=== PATIENT | male | born 1960 | race Caucasian/White ===

== ENCOUNTER 2019-06-06 13:57 | Emergency (ER) | payer OTHER ==
--- NOTE | 2019-06-06 17:51 | EDM.PDOC ---
ED HPI GENERAL MEDICAL PROBLEM - General Chief Complaint: Chest Pain Stated Complaint: PAIN IN SHOULDER AND ARM Time Seen by Provider: 06/06/19 17:24 Source of Information: Reports: Patient History Limitations: Reports: No Limitations - History of Present Illness INITIAL COMMENTS - FREE TEXT/NARRATIVE: Patient is a 59-year-old male who presents with complaints of intermittent left upper arm and shoulder pain/tightness, as well as occasional upper back pain. There is been no known injury to the areas and no recent overuse of the extremity. He denies any chest pain, shortness of breath, diaphoresis, or dizziness associated with the pain. Describes the pain as a dull ache over the anterior and posterior bicep of the left arm. States that yesterday he had some upper back pain as well. The pain is not constant but rather comes and goes. Pain was not present at the time of the exam. Patient has no personal cardiac history. Past medical history is significant for high cholesterol, hypertension, and sleep apnea. He has no history of blood clots. Denies any swelling or warmth to the left upper extremity. Upper Back Pain Score (Numeric/FACES): 4 Left Arm Pain Score (Numeric/FACES): 2 - Related Data Allergies Allergy/AdvReac Type Severity Reaction Status Date / Time EES AdvReac Vomiting Uncoded 06/06/19 14:12 Home Meds: Home Meds Cholecalciferol (Vitamin D3) [Vitamin D3] 1,000 unit PO DAILY 06/06/19 [History] FLUoxetine [PROzac] 20 mg PO DAILY 06/06/19 [History] Levothyroxine 75 mcg PO DAILY 06/06/19 [History] Losartan [Cozaar] 25 mg PO DAILY 06/06/19 [History] atorvaSTATin [Lipitor] 80 mg PO BEDTIME 06/06/19 [History] metFORMIN [Glucophage] 1,000 mg PO BID 06/06/19 [History] Past Medical History Cardiovascular History: Reports: High Cholesterol, Hypertension Respiratory History: Reports: Sleep Apnea Other Respiratory History: wears c-pap Psychiatric History: Reports: Depression - Past Surgical History HEENT Surgical History: Reports: Adenoidectomy, Tonsillectomy GI Surgical History: Reports: Cholecystectomy Musculoskeletal Surgical History: Reports: Hip Replacement, Shoulder Surgery Social & Family History - Tobacco Use Smoking Status *Q: Never Smoker - Caffeine Use Caffeine Use: Reports: Coffee, Energy Drinks - Recreational Drug Use Recreational Drug Use: No ED ROS GENERAL - Review of Systems Review Of Systems: See Below Constitutional: Reports: No Symptoms. Denies: Fever, Chills, Weakness, Diaphoresis HEENT: Reports: No Symptoms Respiratory: Reports: No Symptoms. Denies: Shortness of Breath Cardiovascular: Reports: No Symptoms. Denies: Chest Pain Endocrine: Reports: No Symptoms GI/Abdominal: Reports: No Symptoms. Denies: Abdominal Pain, Nausea, Vomiting : Reports: No Symptoms Musculoskeletal: Reports: Shoulder Pain, Arm Pain, Back Pain Skin: Reports: No Symptoms Neurological: Reports: No Symptoms. Denies: Dizziness, Numbness, Paresthesia, Tingling Psychiatric: Reports: No Symptoms Hematologic/Lymphatic: Reports: No Symptoms Immunologic: Reports: No Symptoms ED EXAM, GENERAL - Physical Exam Exam: See Below Exam Limited By: No Limitations General Appearance: Alert, WD/WN, No Apparent Distress Head: Atraumatic, Normocephalic Neck: Normal Inspection, Supple, Non-Tender, Full Range of Motion Respiratory/Chest: No Respiratory Distress, Lungs Clear, Normal Breath Sounds, No Accessory Muscle Use, Chest Non-Tender Cardiovascular: Normal Peripheral Pulses, Regular Rate, Rhythm, No Edema, No Gallop, No JVD, No Murmur, No Rub Back Exam: Normal Inspection, Full Range of Motion, NT Extremities: Normal Inspection, Normal Range of Motion, Non-Tender, Normal Capillary Refill, No Pedal Edema Neurological: Alert, Oriented, CN II-XII Intact, Normal Cognition, Normal Gait, Normal Reflexes, No Motor/Sensory Deficits Psychiatric: Normal Affect, Normal Mood Skin Exam: Warm, Dry, Intact, Normal Color, No Rash EKG INTERPRETATION EKG Date: 06/06/19 Time: 16:53 Rhythm: NSR Rate (Beats/Min): 62 [place]: Normal P-Wave: Present QRS: Normal ST-T: Normal QT: Normal EKG Interpretation Comments: EKG interpreted by Dr. Padgett. Course - Vital Signs Last Recorded V/S: Last Vital Signs Temp 96.8 F L 06/06/19 14:17 Pulse 65 06/06/19 14:17 Resp 20 06/06/19 14:17 BP 168/103 H 06/06/19 14:17 Pulse Ox 95 06/06/19 14:17 - Orders/Labs/Meds Orders: Active Orders 24 hr Category Date Time Status EKG Documentation Completion [RC] ASDIRECTED Care 06/06/19 16:29 Active EKG Documentation Completion [RC] STAT Care 06/06/19 17:36 Active Chest 1V Frontal [CR] Stat Exams 06/06/19 16:23 Taken EKG 12 Lead [EK] Stat Ther 06/06/19 16:29 Ordered Labs: Laboratory Tests 06/06/19 06/06/19 06/06/19 Range/Units 14:18 14:18 14:18 WBC 6.95 (4.23-9.07) K/mm3 RBC 4.80 (4.63-6.08) M/mm3 Hgb 15.3 (13.7-17.5) gm/dl Hct 43.5 (40.1-51.0) % MCV 90.6 (79.0-92.2) fl MCH 31.9 (25.7-32.2) pg MCHC 35.2 (32.2-35.5) g/dl RDW Std Deviation 44.7 H (35.1-43.9) fL Plt Count 176 (163-337) K/mm3 MPV 11.5 (9.4-12.3) fl Neut % (Auto) 58.6 (34.0-67.9) % Lymph % (Auto) 31.1 (21.8-53.1) % [place] % (Auto) 9.4 (5.3-12.2) % Eos % (Auto) 0.7 L (0.8-7.0) Baso % (Auto) 0.1 (0.1-1.2) % Neut # (Auto) 4.07 (1.78-5.38) K/mm3 Lymph # (Auto) 2.16 (1.32-3.57) K/mm3 [place] # (Auto) 0.65 (0.30-0.82) K/mm3 Eos # (Auto) 0.05 (0.04-0.54) K/mm3 Baso # (Auto) 0.01 (0.01-0.08) K/mm3 PT 10.6 (9.7-12.0) SECONDS INR 0.97 D-Dimer, Quantitative (0.19-0.50) mg/L Sodium 140 (136-145) mEq/L Potassium 4.2 (3.5-5.1) mEq/L Chloride 103 (98-107) mEq/L Carbon Dioxide 27 (21-32) mEq/L Anion Gap 14.2 (5-15) BUN 19 H (7-18) mg/dL Creatinine 1.4 H (0.7-1.3) mg/dL Est Cr Clr Drug Dosing 63.13 mL/min Estimated GFR (MDRD) 52 (>60) mL/min BUN/Creatinine Ratio 13.6 L (14-18) Glucose 173 H (74-106) mg/dL Calcium 9.2 (8.5-10.1) mg/dL Total Bilirubin 0.7 (0.2-1.0) mg/dL AST 21 (15-37) U/L ALT 44 (16-63) U/L Alkaline Phosphatase 97 (46-116) U/L Troponin I < 0.017 (0.00-0.056) ng/mL Total Protein 7.8 (6.4-8.2) g/dl Albumin 4.0 (3.4-5.0) g/dl Globulin 3.8 gm/dL Albumin/Globulin Ratio 1.1 (1-2) 06/06/19 06/06/19 Range/Units 14:18 17:53 WBC (4.23-9.07) K/mm3 RBC (4.63-6.08) M/mm3 Hgb (13.7-17.5) gm/dl Hct (40.1-51.0) % MCV (79.0-92.2) fl MCH (25.7-32.2) pg MCHC (32.2-35.5) g/dl RDW Std Deviation (35.1-43.9) fL Plt Count (163-337) K/mm3 MPV (9.4-12.3) fl Neut % (Auto) (34.0-67.9) % Lymph % (Auto) (21.8-53.1) % [place] % (Auto) (5.3-12.2) % Eos % (Auto) (0.8-7.0) Baso % (Auto) (0.1-1.2) % Neut # (Auto) (1.78-5.38) K/mm3 Lymph # (Auto) (1.32-3.57) K/mm3 [place] # (Auto) (0.30-0.82) K/mm3 Eos # (Auto) (0.04-0.54) K/mm3 Baso # (Auto) (0.01-0.08) K/mm3 PT (9.7-12.0) SECONDS INR D-Dimer, Quantitative 0.27 (0.19-0.50) mg/L Sodium (136-145) mEq/L Potassium (3.5-5.1) mEq/L Chloride (98-107) mEq/L Carbon Dioxide (21-32) mEq/L Anion Gap (5-15) BUN (7-18) mg/dL Creatinine (0.7-1.3) mg/dL Est Cr Clr Drug Dosing mL/min Estimated GFR (MDRD) (>60) mL/min BUN/Creatinine Ratio (14-18) Glucose (74-106) mg/dL Calcium (8.5-10.1) mg/dL Total Bilirubin (0.2-1.0) mg/dL AST (15-37) U/L ALT (16-63) U/L Alkaline Phosphatase (46-116) U/L Troponin I < 0.017 (0.00-0.056) ng/mL Total Protein (6.4-8.2) g/dl Albumin (3.4-5.0) g/dl Globulin gm/dL Albumin/Globulin Ratio (1-2) - Re-Assessments/Exams Free Text/Narrative Re-Assessment/Exam: 06/06/19 18:13 Patient's hematology was grossly unremarkable with the exception of a BUN elevated at 19 and a creatinine elevated at 1.4. D-dimer was negative at 0.27 and initial troponin was negative at less than 0.017. Ordered a repeat troponin be completed approximately 3 hours from the original. If this comes back normal, I will will discuss treatment of musculoskeletal pain with the patient. 06/06/19 18:34 Repeat troponin was also negative. We will discharge the patient home. Discharge instructions as documented. Departure - Departure Time of Disposition: 18:34 Disposition: Home, Self-Care 01 Condition: Fair Clinical Impression: Arm pain, left Instructions: Musculoskeletal Pain Referrals: Macie Raymundo MD [Primary Care Provider] - Linda Powell NP [Ordering Only Provider] - Forms: ED Department Discharge Additional Instructions: You were seen in the emergency department today for left arm pain, as well as upper back pain for the last 2 days. Your work-up included blood work, an EKG of your heart, and a chest x-ray. These were negative for any abnormalities. At this time there are no signs of a heart attack. It is likely that your pain is musculoskeletal in nature. Recommend using [id number] Tylenol or ibuprofen as needed for any discomfort. If you should experience any worsening symptoms such as increased pain, shortness of breath, dizziness, or any other symptoms of concern, please do not hesitate to return to the emergency department. Sepsis Event Note - Evaluation Sepsis Screening Result: No Definite Risk - Focused Exam Vital Signs: Vital Signs Temp Pulse Resp BP Pulse Ox 06/06/19 14:17 96.8 F L 65 20 168/103 H 95 Date Exam was Performed: 06/06/19 Time Exam was Performed: 21:20 - My Orders Last 24 Hours: My Active Orders 06/06/19 16:23 Chest 1V Frontal [CR] Stat 06/06/19 16:29 EKG Documentation Completion [RC] ASDIRECTED EKG 12 Lead [EK] Stat 06/06/19 17:36 EKG Documentation Completion [RC] STAT - Assessment/Plan Last 24 Hours: My Active Orders 06/06/19 16:23 Chest 1V Frontal [CR] Stat 06/06/19 16:29 EKG Documentation Completion [RC] ASDIRECTED EKG 12 Lead [EK] Stat 06/06/19 17:36 EKG Documentation Completion [RC] STAT
--- NOTE | 2019-06-07 08:00 | CR ---
Chest: Portable view of the chest was obtained. Comparison: No prior chest imaging. Heart size and mediastinum are normal. Lungs are clear with no acute parenchymal change. Bony structures are grossly intact. Impression: 1. Nothing acute is appreciated on portable chest x-ray. Diagnostic code #1 This report was dictated in [place] Standard Time
== END 2019-06-06 18:49 | disposition home or self-care (01) ==
LOC: JD.ED 13:57
DX: M79.622 Pain in left upper arm (principal); M54.6 Pain in thoracic spine; Z91.09 Other allergy status, other than to drugs and biological substances; I10 Essential (primary) hypertension; F32.9 Major depressive disorder, single episode, unspecified; Z79.899 Other long term (current) drug therapy; Z98.890 Other specified postprocedural states; Z90.49 Acquired absence of other specified parts of digestive tract; Z79.84 Long term (current) use of oral hypoglycemic drugs
CPT/HCPCS: 36415; 71045; 71045-26; 80053; 84484; 85025; 85379; 85610; 93005; 93010; 99283; 99284-25

== ENCOUNTER 2020-04-29 09:36 | Emergency (ER) | payer OTHER ==
--- NOTE | 2020-04-29 09:58 | EDM.PDOC ---
ED HPI GENERAL MEDICAL PROBLEM - General Chief Complaint: Cardiovascular Problem Stated Complaint: HIGH BP/NUMBNESS IN RT ARM AND HAND Time Seen by Provider: 04/29/20 09:57 - History of Present Illness INITIAL COMMENTS - FREE TEXT/NARRATIVE: 60-year-old male presents the emergency room with elevated hypertension. Patient has noted his blood pressures been elevated for the last several days. Sometimes the systolic is higher than 190. He called the MD clinic and they recommended he come in for evaluation. Patient is treated with losartan for his hypertension. Patient also has type 2 diabetes. Patient is also noticed that his vision has been getting a little blurry however he is due for having his eyes checked, and he is not aware of a correlation with this being related to his blood pressure going up. Patient has some intermittent tingling sensation in his right hand mostly his pinky finger. He has not had any headaches no nausea no vomiting and no symptoms to make him feel as though he is coming down with something. Patient has not had any medication changes recently. He has noticed however his blood sugars have been running slightly higher than normal less than 200. However he normally runs in the 100-130 range. Medications have been reviewed he is on 3 medications for his blood pressure Toprol-XL 100 mg daily hydrochlorothiazide 50 mg daily and losartan 25 mg daily. Right Hand Pain Score (Numeric/FACES): 2 - Related Data Allergies Allergy/AdvReac Type Severity Reaction Status Date / Time EES AdvReac Severe Vomiting Uncoded 04/29/20 09:50 Home Meds: Home Meds Cholecalciferol (Vitamin D3) [Vitamin D3] 1,000 unit PO DAILY 06/06/19 [History] FLUoxetine [PROzac] 20 mg PO DAILY 06/06/19 [History] Levothyroxine 75 mcg PO DAILY 06/06/19 [History] Losartan [Cozaar] 25 mg PO DAILY 06/06/19 [History] atorvaSTATin [Lipitor] 80 mg PO BEDTIME 06/06/19 [History] metFORMIN [Glucophage] 1,000 mg PO BID 06/06/19 [History] Alogliptin Benzoate [Alogliptin] 12.5 mg PO DAILY 04/29/20 [History] Ezetimibe 10 mg PO BEDTIME 04/29/20 [History] Metoprolol Succinate [Toprol Xl] 100 mg PO DAILY 04/29/20 [History] Sildenafil [Viagra] 100 mg PO DAILY PRN 04/29/20 [History] hydroCHLOROthiazide [Hydrochlorothiazide] 50 mg PO DAILY 04/29/20 [History] Past Medical History Cardiovascular History: Reports: High Cholesterol, Hypertension Respiratory History: Reports: Sleep Apnea Other Respiratory History: wears c-pap Psychiatric History: Reports: Depression - Past Surgical History HEENT Surgical History: Reports: Adenoidectomy, Tonsillectomy GI Surgical History: Reports: Cholecystectomy Musculoskeletal Surgical History: Reports: Hip Replacement, Shoulder Surgery Social & Family History - Caffeine Use Caffeine Use: Reports: Coffee, Energy Drinks ED ROS GENERAL - Review of Systems Review Of Systems: See Below Constitutional: Reports: No Symptoms HEENT: Reports: No Symptoms Respiratory: Reports: No Symptoms Cardiovascular: Reports: Blood Pressure Problem Endocrine: Reports: Other (Patient states that his blood sugars have been running a little higher than normal.) ED EXAM, GENERAL - Physical Exam Exam: See Below Exam Limited By: No Limitations General Appearance: Alert, Moderate Distress Eye Exam: Bilateral Eye: EOMI, Normal Inspection, PERRL Ears: Normal External Exam, Normal Canal, Hearing Grossly Normal, Normal TMs Nose: Normal Inspection, Normal Mucosa, No Blood Throat/Mouth: Normal Inspection, Normal Lips, Normal Teeth, Normal Gums, Normal Oropharynx, Normal Voice, No Airway Compromise Head: Atraumatic, Normocephalic Neck: Normal Inspection, Supple, Non-Tender, Full Range of Motion. No: Lymphadenopathy (L), Lymphadenopathy (R) Respiratory/Chest: No Respiratory Distress, Lungs Clear, Normal Breath Sounds Cardiovascular: Regular Rate, Rhythm, No Edema, No Murmur GI/Abdominal: Normal Bowel Sounds, Soft, Non-Tender Back Exam: Normal Inspection. No: CVA Tenderness (L), CVA Tenderness (R) Extremities: Normal Inspection, No Pedal Edema, Other (Tinel's, Phalen's, reverse Phalen's are all normal in his right hand and wrist) Neurological: Alert #1 Interpretation EKG Date: 04/29/20 Rhythm: NSR [place]: Normal P-Wave: Present QRS: Other (Low voltage precordial leads) ST-T: Normal QT: Normal Comparison: NA - No Prior EKG EKG Interpretation Comments: Borderline nonacute EKG Course - Vital Signs Last Recorded V/S: Last Vital Signs Temp 35.3 C L 04/29/20 09:45 Pulse 54 L 04/29/20 09:45 Resp 20 04/29/20 09:45 BP 180/97 H 04/29/20 09:45 Pulse Ox 98 04/29/20 09:45 - Orders/Labs/Meds Orders: Active Orders 24 hr Category Date Time Status EKG Documentation Completion [RC] ASDIRECTED Care 04/29/20 09:42 Active EKG 12 Lead [EK] Stat Ther 04/29/20 09:42 Ordered Labs: Laboratory Tests 04/29/20 04/29/20 04/29/20 Range/Units 09:50 09:50 11:53 WBC 6.32 (4.23-9.07) K/mm3 RBC 4.46 L (4.63-6.08) M/mm3 Hgb 13.9 (13.7-17.5) gm/dl Hct 40.9 (40.1-51.0) % MCV 91.7 (79.0-92.2) fl MCH 31.2 (25.7-32.2) pg MCHC 34.0 (32.2-35.5) g/dl RDW Std Deviation 45.5 H (35.1-43.9) fL Plt Count 161 L (163-337) K/mm3 MPV 11.6 (9.4-12.3) fl Neut % (Auto) 58.3 (34.0-67.9) % Lymph % (Auto) 29.1 (21.8-53.1) % [place] % (Auto) 10.9 (5.3-12.2) % Eos % (Auto) 1.1 (0.8-7.0) Baso % (Auto) 0.3 (0.1-1.2) % Neut # (Auto) 3.68 (1.78-5.38) K/mm3 Lymph # (Auto) 1.84 (1.32-3.57) K/mm3 [place] # (Auto) 0.69 (0.30-0.82) K/mm3 Eos # (Auto) 0.07 (0.04-0.54) K/mm3 Baso # (Auto) 0.02 (0.01-0.08) K/mm3 Sodium 140 (136-145) mEq/L Potassium 4.3 (3.5-5.1) mEq/L Chloride 104 (98-107) mEq/L Carbon Dioxide 28 (21-32) mEq/L Anion Gap 12.3 (5-15) BUN 21 H (7-18) mg/dL Creatinine 1.1 (0.7-1.3) mg/dL Est Cr Clr Drug Dosing 79.36 mL/min Estimated GFR (MDRD) > 60 (>60) mL/min BUN/Creatinine Ratio 19.1 H (14-18) Glucose 126 H (74-106) mg/dL Calcium 9.2 (8.5-10.1) mg/dL Total Bilirubin 0.6 (0.2-1.0) mg/dL AST 23 (15-37) U/L ALT 47 (16-63) U/L Alkaline Phosphatase 83 (46-116) U/L Troponin I < 0.017 (0.00-0.056) ng/mL Total Protein 7.5 (6.4-8.2) g/dl Albumin 3.6 (3.4-5.0) g/dl Globulin 3.9 gm/dL Albumin/Globulin Ratio 0.9 L (1-2) - Re-Assessments/Exams Free Text/Narrative Re-Assessment/Exam: 04/29/20 10:57 We will check labs EKG does not show any acute changes. [facility] 04/29/20 12:42 Patient's labs look good except his BUN is slightly elevated. We will make no changes with his blood pressure medication at this time a reasonable consideration would be increasing his losartan to 50 mg daily or perhaps 25 mg twice a day. I did discuss alterations in his blood pressure management with the patient and this will be left up to his clinic provider. They have been monitoring his pressure on a daily basis. Departure - Departure Time of Disposition: 12:43 Disposition: Home, Self-Care 01 Clinical Impression: Elevated blood pressure reading with diagnosis of hypertension Referrals: Macie Raymundo MD [Primary Care Provider] - Forms: ED Department Discharge Additional Instructions: Return to the emergency room with any questions problems or worsening symptoms. Follow-up with the MD clinic later this week for recheck and probable adjustment of your blood pressure medication. Sepsis Event Note (ED) - Evaluation Sepsis Screening Result: No Definite Risk - Focused Exam Vital Signs: Vital Signs Temp Pulse Resp BP Pulse Ox 04/29/20 09:45 35.3 C L 54 L 20 180/97 H 98
== END 2020-04-29 12:58 | disposition home or self-care (01) ==
LOC: JD.ED 09:36
DX: I10 Essential (primary) hypertension (principal); E78.00 Pure hypercholesterolemia, unspecified; E11.9 Type 2 diabetes mellitus without complications; Z88.8 Allergy status to other drugs, medicaments and biological substances; Z79.84 Long term (current) use of oral hypoglycemic drugs; Z79.899 Other long term (current) drug therapy
CPT/HCPCS: 36415; 80053; 84484; 85025; 93005; 93010; 99283; 99284-25

== ENCOUNTER 2020-05-14 09:26 | Emergency (ER) | payer OTHER ==
--- NOTE | 2020-05-14 11:24 | EDM.PDOC ---
ED HPI GENERAL MEDICAL PROBLEM - General Chief Complaint: Upper Extremity Injury/Pain Stated Complaint: ARM PAIN/HAND NUMBNESS Time Seen by Provider: 05/14/20 11:06 Source of Information: Reports: Patient, RN Notes Reviewed History Limitations: Reports: No Limitations - History of Present Illness INITIAL COMMENTS - FREE TEXT/NARRATIVE: Patient is a 60-year-old male who presents to the ED for the evaluation of his right hand pain/finger numbness. Patient notes for the last week or so, he has been having issues with his pinky finger and his ring finger in his right hand, he states that he gets sharp lancinating pains at times, but most the times it feels tingly and numb. He states he has no trauma to this area. He works in an [employer], and cannot recall doing any more repetitive motions then normal. He is also complaining of some possible loss of strength in his right hand and arm however he denies any neck or shoulder injury. He states that the pain is constant, nothing seems to really worsen it or make it better. He takes aspirin at times, but this does not seem to help. Patient is a diabetic. Patient denies any other sick-like symptoms, fever/chills, cough/shortness of breath, nausea/vomiting/diarrhea. Right Finger-Little Pain Score (Numeric/FACES): 4 - Related Data Allergies Allergy/AdvReac Type Severity Reaction Status Date / Time EES AdvReac Severe Vomiting Uncoded 05/14/20 09:46 Home Meds: Home Meds Cholecalciferol (Vitamin D3) [Vitamin D3] 1,000 unit PO DAILY 06/06/19 [History] FLUoxetine [PROzac] 20 mg PO DAILY 06/06/19 [History] Levothyroxine 75 mcg PO DAILY 06/06/19 [History] Losartan [Cozaar] 25 mg PO DAILY 06/06/19 [History] atorvaSTATin [Lipitor] 80 mg PO BEDTIME 06/06/19 [History] metFORMIN [Glucophage] 1,000 mg PO BID 06/06/19 [History] Alogliptin Benzoate [Alogliptin] 12.5 mg PO DAILY 04/29/20 [History] Ezetimibe 10 mg PO BEDTIME 04/29/20 [History] Metoprolol Succinate [Toprol Xl] 100 mg PO DAILY 04/29/20 [History] Sildenafil [Viagra] 100 mg PO DAILY PRN 04/29/20 [History] hydroCHLOROthiazide [Hydrochlorothiazide] 50 mg PO DAILY 04/29/20 [History] Meloxicam 15 mg PO DAILY #10 tablet 05/14/20 [Rx] Past Medical History Cardiovascular History: Reports: High Cholesterol, Hypertension Respiratory History: Reports: Sleep Apnea Other Respiratory History: wears c-pap Psychiatric History: Reports: Depression - Infectious Disease History Infectious Disease History: Reports: Chicken Pox, Mumps, Other (See Below) Other Infectious Disease History: West Nile - Past Surgical History HEENT Surgical History: Reports: Adenoidectomy, Tonsillectomy GI Surgical History: Reports: Cholecystectomy Musculoskeletal Surgical History: Reports: Hip Replacement, Shoulder Surgery Social & Family History - Family History Family Medical History: No Pertinent Family History - Tobacco Use Tobacco Use Status *Q: Current Some Day Tobacco User Years of Tobacco use: 1 Packs/Tins Daily: 1 Used Tobacco, but Quit: No Second Hand Smoke Exposure: No - Caffeine Use Caffeine Use: Reports: Tea - Recreational Drug Use Recreational Drug Use: No Review of Systems - Review of Systems Review Of Systems: Comprehensive ROS is negative, except as noted in HPI. ED EXAM, GENERAL - Physical Exam Exam: See Below Exam Limited By: No Limitations General Appearance: Alert, WD/WN, No Apparent Distress Respiratory/Chest: No Respiratory Distress, Lungs Clear, Normal Breath Sounds, No Accessory Muscle Use, Chest Non-Tender Cardiovascular: Normal Peripheral Pulses, Regular Rate, Rhythm, No Edema Peripheral Pulses: 2+: Radial (L), Radial (R) Extremities: Normal Inspection, Normal Range of Motion, Normal Capillary Refill Neurological: Alert, Oriented, Normal Cognition, No Motor/Sensory Deficits Psychiatric: Normal Affect, Normal Mood Skin Exam: Warm, Dry, Intact, Normal Color, No Rash Course - Vital Signs Last Recorded V/S: Last Vital Signs Temp 96.3 F L 05/14/20 09:36 Pulse 54 L 05/14/20 09:36 Resp 18 05/14/20 09:36 BP 183/90 H 05/14/20 09:36 Pulse Ox 97 05/14/20 09:36 - Re-Assessments/Exams Free Text/Narrative Re-Assessment/Exam: 05/14/20 11:20 Patient presents to the ED for evaluation of his right hand/pinky finger/ring finger issue. Due to the patient being a diabetic, we cannot start him on steroids as I am highly suspicious that there is some sort of ulnar nerve palsy. I did discuss with Dr. Cortes, medications in the lieu of steroids, he does suggest meloxicam 50 mg daily and a referral to Dr. Joshi. 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 It is highly likely, that you have some sort of dysfunction of the ulnar nerve in your right hand causing issues with your right pinky and ring finger. You were given a prescription for meloxicam, 1 tablet once a day, until gone to help the suspected inflammation of the nerve. You may obtain a simple wrist splint at a pharmacy or any other retail space, to wear at night, to help further provide immobilization of the wrist, and to try to help rest the nerve. Please call Ortho for follow-up and further evaluation Dr. Joshi is our orthopedic surgeon, his office number is [phone]. Please call and set up an appointment as soon as possible for further management. Please return to ED if your symptoms should change or worsen. Sepsis Event Note (ED) - Evaluation Sepsis Screening Result: No Definite Risk - Focused Exam Vital Signs: Vital Signs Temp Pulse Resp BP Pulse Ox 05/14/20 09:36 96.3 F L 54 L 18 183/90 H 97
== END 2020-05-14 12:13 | disposition home or self-care (01) ==
LOC: JD.ED 09:26
DX: G56.21 Lesion of ulnar nerve, right upper limb (principal); E78.00 Pure hypercholesterolemia, unspecified; I10 Essential (primary) hypertension; Z72.0 Tobacco use; Z79.899 Other long term (current) drug therapy
CPT/HCPCS: 99283